=== PATIENT | female | born 1960 | race Caucasian/White ===

== ENCOUNTER 2017-07-26 19:23 | Emergency (ER) | payer OTHER ==
[~2017-07-26 19:23] MED LIST: LEVO75TA3 PO
[2017-07-26 19:26] VITALS: BP 173/81; PULSE 87; RESP 16; TEMP 98.4; O2SAT 100
[2017-07-26 19:51] VITALS: BP 187/103; PULSE 120; RESP 18; O2SAT 98
[2017-07-26] MEDS ORDERED: SODIUM CHLORID 0.9% 500 ML INJ 500 ML IV ONE (20:00)
[2017-07-26] MEDS ORDERED: SODIUM CHLORIDE 0.9% FLUSH 10 ML FLUSH IVF PRN (20:00)
--- NOTE | 2017-07-26 20:04 | PD ---
HPI Chief Complaint: Chest Pain Time Seen by Provider: 19:43 Travel History International Travel<30 days: No Contact w/Intl Traveler<30days: No Traveled to known affect area: No History of Present Illness HPI The patient is a 56-year-old female who presents to the emergency department with multiple complaints. The patient states she's been having some intermittent right sided numbness for months on the right side of her body, she has seen her physician in regards to her multiple complaints including the numbness, states they are currently working on normalizing her thyroid. The patient currently takes [facility]. The patient now notes her last several days that she has had some intermittent episodes of a dull ache of the anterior chest wall with palpitations. The patient also complains of blood in her stool , intermittently, since she fasted several weeks ago. The patient is scheduled for a colonoscopy on August 03, 2017. The patient went to her physician's office earlier today, he was now present, however, there was a crime scene photographer present rechecked her blood pressure noted it was 150/90. The patient was advised to come to the emergency department if her symptoms persist. The patient's symptoms are multiple, no known alleviating or exacerbating factors. PFSH Past Medical History Anemia: Yes Anxiety: Yes Cardiovascular Problems: Yes (HYPOTENSION) High Cholesterol: Yes (NON-MEDICATED) Diabetes: No Diminished Hearing: No Thyroid Disease: Yes (HYPO) ?: Not : 7 Para: 5 Miscarriage: 2 Past Surgical History Section: Yes (x 1) Tonsillectomy: Yes Other Surgery: Yes (TUBES IN EARS CHILD) Family History Family Myocardial Infarction: Yes (FATHER, UNCLES) Social History Alcohol Use: No Tobacco Use: No Substance Use: No Allergies-Medications (Allergen,Severity, Reaction): Coded Allergies: garlic (Unverified Allergy, Severe, ABD PAIN, 04/12/17) hydrocodone (Unverified Allergy, Severe, NAUSEA & VOMITING, 04/12/17) ipratropium (Unverified Allergy, Severe, INFLAMMATION, 04/12/17) Penicillins (Verified Allergy, Unknown, 07/26/17) FAMILY HISTORY codeine (Unverified Adverse Reaction, Unknown, NAUSEA, HEADACHE, 04/12/17) Reported Meds & Prescriptions Reported Meds & Active Scripts Active Levothyroxine Sodium (Generic) (Levothyroxine Sodium) 75 Mcg Tab 75 Mcg PO DAILY Review of Systems Except as stated in HPI: all other systems reviewed are Neg General / Constitutional: No: Fever HENT: No: Lightheadedness Cardiovascular: Positive: Chest Pain or Discomfort, Palpitations, Tachycardia Respiratory: No: Shortness of Breath Gastrointestinal: Positive: Hematochezia, No: Nausea, Vomiting, Abdominal Pain Neurologic: Positive: Paresthesia, Sensory Disturbance, No: Dizziness Physical Exam Narrative GENERAL: Awake, alert, somewhat anxious 56-year-old female who appears her stated age and is in no acute respiratory distress. SKIN: Focused skin assessment warm/dry. HEAD: Atraumatic. Normocephalic. EYES: Pupils equal and round. No scleral icterus. No injection or drainage. ENT: No nasal bleeding or discharge. Mucous membranes pink and moist. NECK: Trachea midline. No JVD. CARDIOVASCULAR: Regular, tachycardic with a heart rate of 120. RESPIRATORY: No accessory muscle use. Clear to auscultation. Breath sounds equal bilaterally. GASTROINTESTINAL: Abdomen soft, obese, no rebound tenderness. Rectal: The exam was performed in the presence of a female nurse. No gross blood. Guaiac negative. MUSCULOSKELETAL: No obvious deformities. No clubbing. No cyanosis. No edema. NEUROLOGICAL: Awake and alert. No obvious cranial nerve deficits. Motor grossly within normal limits. Normal speech. Nonfocal. PSYCHIATRIC: Somewhat anxious, insight and judgment appear normal. Data Data Last Documented VS Vital Signs Date Time Temp Pulse Resp B/P (MAP) Pulse Ox O2 Delivery O2 Flow Rate FiO2 07/26/17 20:26 92 20 155/73 (100) 99 Room Air 07/26/17 19:26 98.4 Orders Orders Electrocardiogram (07/26/17 19:57) Ckmb (Isoenzyme) Profile (07/26/17 19:57) Complete Blood Count With Diff (07/26/17 19:57) Comprehensive Metabolic Panel (07/26/17 19:57) D-Dimer (07/26/17 19:57) Magnesium (Mg) (07/26/17 19:57) Prothrombin Time / Inr (Pt) (07/26/17 19:57) Act Partial Throm Time (Ptt) (07/26/17 19:57) Troponin I (07/26/17 19:57) Chest, Single Ap (07/26/17 19:57) Ecg Monitoring (07/26/17 19:57) Bilateral Bp Monitoring (07/26/17 19:57) Iv Access Insert/Monitor (07/26/17 19:57) Oximetry (07/26/17 19:57) Oxygen Administration (07/26/17 19:57) Sodium Chloride 0.9% Flush (Ns Flush) (07/26/17 20:00) Sodium Chlorid 0.9% 500 Ml Inj (Ns 500 M (07/26/17 20:00) Thyroid Stimulating Hormone (07/26/17 19:57) Free T3 (07/26/17 19:57) Free Thyroxine (T4) (07/26/17 19:57) Ed Discharge Order (07/26/17 22:12) Labs Laboratory Tests Test 07/26/17 20:25 White Blood Count 8.8 TH/MM3 Red Blood Count 4.47 MIL/MM3 Hemoglobin 13.5 GM/DL Hematocrit 39.8 % Mean Corpuscular Volume 89.0 FL Mean Corpuscular Hemoglobin 30.3 PG Mean Corpuscular Hemoglobin Concent 34.0 % Red Cell Distribution Width 13.2 % Platelet Count 249 TH/MM3 Mean Platelet Volume 7.9 FL Neutrophils (%) (Auto) 48.7 % Lymphocytes (%) (Auto) 42.1 % Monocytes (%) (Auto) 8.0 % Eosinophils (%) (Auto) 0.7 % Basophils (%) (Auto) 0.5 % Neutrophils # (Auto) 4.3 TH/MM3 Lymphocytes # (Auto) 3.7 TH/MM3 Monocytes # (Auto) 0.7 TH/MM3 Eosinophils # (Auto) 0.1 TH/MM3 Basophils # (Auto) 0.0 TH/MM3 CBC Comment DIFF FINAL Differential Comment Prothrombin Time 10.4 SEC Prothromb Time International Ratio 0.9 RATIO Activated Partial Thromboplast Time 26.2 SEC D-Dimer Quantitative (PE/DVT) 0.37 MG/L FEU Blood Urea Nitrogen 18 MG/DL Creatinine 0.73 MG/DL Random Glucose 89 MG/DL Total Protein 8.0 GM/DL Albumin 3.9 GM/DL Calcium Level 9.0 MG/DL Magnesium Level 2.0 MG/DL Alkaline Phosphatase 105 U/L Aspartate Amino Transf (AST/SGOT) 25 U/L Alanine Aminotransferase (ALT/SGPT) 32 U/L Total Bilirubin 0.3 MG/DL Sodium Level 138 MEQ/L Potassium Level 3.9 MEQ/L Chloride Level 103 MEQ/L Carbon Dioxide Level 26.7 MEQ/L Anion Gap 8 MEQ/L Estimat Glomerular Filtration Rate 83 ML/MIN Total Creatine Kinase 98 U/L Troponin I LESS THAN 0.02 NG/ML Free Thyroxine 0.80 NG/DL Free Triiodothyronine (T3) pg/dL 2.30 PG/ML Thyroid Stimulating Hormone 3rd Gen 1.810 uIU/ML MDM Medical Decision Making Medical Screen Exam Complete: Yes Emergency Medical Condition: Yes Medical Record Reviewed: Yes Interpretation(s) EKG reveals sinus tachycardia with a heart rate of 121. Laboratory Tests Test 07/26/17 20:25 White Blood Count 8.8 TH/MM3 Red Blood Count 4.47 MIL/MM3 Hemoglobin 13.5 GM/DL Hematocrit 39.8 % Mean Corpuscular Volume 89.0 FL Mean Corpuscular Hemoglobin 30.3 PG Mean Corpuscular Hemoglobin Concent 34.0 % Red Cell Distribution Width 13.2 % Platelet Count 249 TH/MM3 Mean Platelet Volume 7.9 FL Neutrophils (%) (Auto) 48.7 % Lymphocytes (%) (Auto) 42.1 % Monocytes (%) (Auto) 8.0 % Eosinophils (%) (Auto) 0.7 % Basophils (%) (Auto) 0.5 % Neutrophils # (Auto) 4.3 TH/MM3 Lymphocytes # (Auto) 3.7 TH/MM3 Monocytes # (Auto) 0.7 TH/MM3 Eosinophils # (Auto) 0.1 TH/MM3 Basophils # (Auto) 0.0 TH/MM3 CBC Comment DIFF FINAL Differential Comment Prothrombin Time 10.4 SEC Prothromb Time International Ratio 0.9 RATIO Activated Partial Thromboplast Time 26.2 SEC D-Dimer Quantitative (PE/DVT) 0.37 MG/L FEU Blood Urea Nitrogen 18 MG/DL Creatinine 0.73 MG/DL Random Glucose 89 MG/DL Total Protein 8.0 GM/DL Albumin 3.9 GM/DL Calcium Level 9.0 MG/DL Magnesium Level 2.0 MG/DL Alkaline Phosphatase 105 U/L Aspartate Amino Transf (AST/SGOT) 25 U/L Alanine Aminotransferase (ALT/SGPT) 32 U/L Total Bilirubin 0.3 MG/DL Sodium Level 138 MEQ/L Potassium Level 3.9 MEQ/L Chloride Level 103 MEQ/L Carbon Dioxide Level 26.7 MEQ/L Anion Gap 8 MEQ/L Estimat Glomerular Filtration Rate 83 ML/MIN Total Creatine Kinase 98 U/L Troponin I LESS THAN 0.02 NG/ML Free Thyroxine 0.80 NG/DL Free Triiodothyronine (T3) pg/dL 2.30 PG/ML Thyroid Stimulating Hormone 3rd Gen 1.810 uIU/ML Last Impressions Chest X-Ray 07/26/171956 Signed Impressions: Service Date/Time: Wednesday, July 26, 2017 20:39 - CONCLUSION: No acute disease. Bennett Bradford MD Differential Diagnosis Differential diagnosis includes hyperthyroidism, pulmonary embolism, symptomatic anemia, ACS, electrolyte abnormality, dehydration, anxiety. Narrative Course IV was established, labs are drawn and sent, and the patient was placed on cardiac telemetry monitoring and continuous pulse oximetry monitoring. EKG was ordered and interpreted. Chest x-rays obtained. TSH, free T4, and free T3 were sent to lab. The patient was administered IV fluids. D-dimer was sent to lab. I reviewed the patient's EMR, she was admitted to the hospital for hypothyroidism and chest pain at 2012, underwent a nuclear medicine myocardial perfusion scan muscle tremor 17/03/2013 which was negative, low risk, EF 64%. The patient's d-dimer was 0.37, no indication for CT bony angiogram. Troponin and CPK are unremarkable. The patient's free T4, free T3, and TSH were unremarkable, within normal limits, I doubt hyperthyroidism. The patient may benefit from outpatient follow-up with neurology in regards to her intermittent paresthesias, she does have a history of herniated disc in the thoracic region, however, she may have another underlying neurologic disorder such as MS. She will be provided a copy of her x-ray results and lab results at discharge. She is stable for outpatient follow-up. Diagnosis Primary Impression: Atypical chest pain Patient Instructions: General Instructions Additional Instructions: Please provide a patient a copy of her EKG results, chest x-ray results, and lab results at discharge. Follow-up with her primary physician. Return if symptoms worsen or progress. Med/Other Pt SpecificInfo: No Change to Meds Disposition: 01 DISCHARGE HOME Condition: Stable Carlos Moffett MD Jul 26, 2017 20:04
[2017-07-26 20:26] VITALS: BP 155/73; PULSE 92; RESP 20; O2SAT 99
--- NOTE | 2017-07-26 20:50 | RADRPT ---
EXAM DATE/TIME: 07/26/2017 20:39 [facility] COMPARISON: No previous studies available for comparison. INDICATIONS : Chest pain. MEDICAL HISTORY : None. SURGICAL HISTORY : None. ENCOUNTER: Initial ACUITY: 1 day PAIN SCORE: 3/10 LOCATION: Bilateral chest FINDINGS: A single view of the chest demonstrates the lungs to be symmetrically aerated without evidence of mas s, infiltrate or effusion. The cardiomediastinal contours are unremarkable. Osseous structures are intact. CONCLUSION: No acute disease. Bennett Bradford MD on July 26, 2017 at 20:48 Board Certified Radiologist. This report was verified electronically.
[2017-07-26 21:02] LABS: AUTOMATED NEUTROPHIL # 4.3 TH/MM3 (1.8-7.7); BASOPHIL % 0.5 % (0.0-2.0); EOSINOPHIL # 0.1 TH/MM3 (0-0.4); EOSINOPHIL % 0.7 % (0.0-4.0); HEMATOCRIT 39.8 % (35.0-46.0); HEMO FLAGS DIFF FINAL; LYMPH % 42.1 % (9.0-44.0); LYMPHOCYTE # 3.7 TH/MM3 (1.0-4.8); MEAN CORPUSCULAR HEMOGLOBIN 30.3 PG (27.0-34.0); NEUT % 48.7 % (16.0-70.0); PLATELET COUNT 249 TH/MM3 (150-450); RED BLOOD COUNT 4.47 MIL/MM3 (4.00-5.30); RED CELL DISTRIBUTION WIDTH 13.2 % (11.6-17.2); WHITE BLOOD COUNT 8.8 TH/MM3 (4.0-11.0)
[2017-07-26 21:13] LABS: APTT (PATIENT) 26.2 SEC (24.3-30.1); INTERNATIONAL NORMALIZED RATIO 0.9 RATIO; PROTHROMBIN TIME - PATIENT 10.4 SEC (9.8-11.6)
[2017-07-26 21:24] LABS: ALT (GPT) 32 U/L (10-53)
[2017-07-26 21:25] LABS: ANION GAP 8 MEQ/L (5-15); AST (GOT) 25 U/L (15-37); BICARBONATE 26.7 MEQ/L (21.0-32.0); BLOOD UREA NITROGEN 18 MG/DL (7-18); CHLORIDE 103 MEQ/L (98-107); GLOMERULAR FILTRATION RATE 83 ML/MIN (>89); POTASSIUM 3.9 MEQ/L (3.5-5.1); SODIUM (NA) 138 MEQ/L (136-145)
[2017-07-26 21:32] LABS: ALKALINE PHOSPHATASE 105 U/L (45-117); TOTAL BILIRUBIN ADULT 0.3 MG/DL (0.2-1.0)
[2017-07-26 21:37] LABS: CREATINE KINASE 98 U/L (26-192)
--- NOTE | 2017-07-27 05:06 | EKG ---
Date Performed: 07/26/2017 Time Performed: 19:52:33 PTAGE: 56 years EKG: Sinus tachycardia ABNORMAL RHYTHM ECG Compared to prior electrocardiogram, rate has increas ed PREVIOUS TRACING : 07/15/2013 15.08 DOCTOR: Leo Benito Interpretating Date/Time 07/27/2017 05:04:41
== END 2017-07-26 22:35 | disposition home or self-care (01) ==
LOC: NEPE 19:23
DX: R07.89 Other chest pain (principal); R00.0 Tachycardia, unspecified; E03.9 Hypothyroidism, unspecified
CPT/HCPCS: 71010; 80053; 82550; 83735; 84439; 84443; 84481; 84484; 85025; 85379; 85610; 85730; 93005; 99285; J7040